=== PATIENT | female | born 1985 | race Caucasian/White ===

== ENCOUNTER 2020-12-16 09:06 | Outpatient (CLI) | payer BC, SELFPAY | END 2020-12-16 09:07 | disposition home or self-care (01) | DX: Z01.10 Encounter for examination of ears and hearing without abnormal findings (principal) | CPT/HCPCS: 99199 ==

== ENCOUNTER 2022-01-27 09:50 | Outpatient (CLI) | payer BC, SELFPAY | END 2022-01-27 09:51 | disposition home or self-care (01) | DX: F79 Unspecified intellectual disabilities (principal) | CPT/HCPCS: 92579 ==